=== PATIENT | female | born 1965 | race African-American/Black ===

== ENCOUNTER 2017-07-29 22:11 | Emergency (ER) | payer OTHER ==
[~2017-07-29] VITALS: Ht 160 cm; Wt 59.0 kg
[2017-07-30] MEDS ORDERED: ACETAMINOPHEN 325MG TABLET PO ONE (06:45)
[2017-07-30 10:38] VITALS: BP 129/75
== END 2017-07-30 10:41 | disposition home or self-care (01) ==
LOC: ER 22:56
DX: S52.591A Other fractures of lower end of right radius, initial encounter for closed fracture (principal); Z88.6 Allergy status to analgesic agent; X50.0XXA Overexertion from strenuous movement or load, initial encounter; Y93.89 Activity, other specified; Y92.520 Airport as the place of occurrence of the external cause
CPT/HCPCS: 73110; 73200; 81025; 93005; 99284; Z7610; A4565